=== PATIENT | male | born 1990 | race Caucasian/White ===

== ENCOUNTER 2019-10-15 10:00 | Outpatient (CLI) | payer MEDICAID, SELFPAY ==
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
== END 2019-10-15 10:20 ==
PROVIDERS: Visit Provider Nurse Practitioner Family
DX: B18.2 Chronic viral hepatitis C (principal)
CPT/HCPCS: 99204